=== PATIENT | female | born 1940 | race Caucasian/White ===

== ENCOUNTER 2021-12-17 10:05 | Outpatient (CLI) | payer MEDICARE, BC, SELFPAY ==
[2021-12-17 10:12] VITALS: BP 179/92; PULSE 69; RESP 16; TEMP 35.8; O2SAT 98
[2021-12-17 10:45] VITALS: BP 139/53; PULSE 58; RESP 16; TEMP 36.2; BMI 24.9
[2021-12-17 11:05] VITALS: BP 139/53; PULSE 59; RESP 16; TEMP 36.7; O2SAT 98
== END 2021-12-17 12:05 | disposition home or self-care (01) ==
PROVIDERS: PCP Family Medicine; Visit Provider Nurse Practitioner
DX: U07.1 COVID-19 (principal)
CPT/HCPCS: 96365

== ENCOUNTER 2022-10-11 10:23 | Emergency (ER) | payer MEDICARE, BC, SELFPAY ==
[2022-10-11 10:32] VITALS: BP 158/73; PULSE 64; RESP 16; TEMP 36.7; O2SAT 99; BMI 21.4
--- NOTE | 2022-10-11 11:11 | ED_ITS ---
HPI - Recheck/Abnormal Lab/Rx General: Chief Complaint: Recheck/Abnormal Lab/Rx Stated Complaint: Dr. Sanchez asked pt to come here. He called. Time Seen by Provider: 10/11/22 11:05 History of Present Illness: Ms. Mathis is an 82-year-old female presenting to the emergency department due to abnormal lab results. Laboratory studies were obtained by Dr. Sanchez at [facility]. She endorses a 4 to 6-week history of weight loss, generalized malaise, some abdominal fullness and discomfort. This has persisted. Moderate intensity. She is unsure of exactly the abnormal lab values. No other specific changes in health, exacerbating, or alleviating factors identified. Review of outside labs: Glucose 137 BUN 23 Creatinine 1 EGFR calculated 56.6 Total protein 7.6 Total bilirubin 5.6 Albumin 3.8 Globulin 3.8 AST 111 ALT 114 Alk phos 1700 Calcium 9.3 Sodium 130 Potassium 2.1 Chloride 83 CO2 35 Anion gap 12 Osmolality 274.5 TSH 1.75 Initial visit (ago): hour(s) Initial visit for: other Returns today for: called because of abnormal lab/test Associated symptoms: malaise, nausea, abdominal pain and other Review of Systems General: Reports: 10 or more systems reviewed and unremarkable except in HPI and below PFSH ED PFSH: Medical History (Updated 10/25/22 @ 23:40 by Jese Nguyen MD) Acid reflux Aortoiliac occlusive disease Calculus of kidney Chronic obstructive pulmonary disease, unspecified Cystitis Essential (primary) hypertension Hyperlipidemia, unspecified Hypothyroidism, unspecified Peripheral vascular disease, unspecified Surgical History (Updated 10/11/22 @ 11:36 by Jese Nguyen MD) S/P aortobifemoral bypass surgery Social History (Updated 10/11/22 @ 11:36 by Jese Nguyen MD) Smoking and tobacco status: former smoker Physical Exam Const: COMMON NORMALS: alert GENERAL APPEARANCE: cooperative and well developed HENMT: COMMON NORMALS: normocephalic and atraumatic HEAD & SCALP: normocephalic and atraumatic Eye: COMMON NORMALS: conjunctivae normal CONJUNCTIVA: Yes conjunctivae normal SCLERA: scleral abnormal Laterality of scleral abnormality: positive bilateral scleral icterus (Very mild) Neck/C-Spine: COMMON NORMALS: supple GENERAL: Yes trachea midline Resp: COMMON NORMALS: normal respiratory effort EFFORT & INSPECTION: Yes able to speak in complete sentences Cardio: COMMON NORMALS: regular rate and regular rhythm RATE: regular rate RHYTHM: regular rhythm GI: COMMON NORMALS: Soft to palpation PALPATION: Yes Soft to palpation and No Tenderness to palpation present (GI) Extremity: GENERAL: Yes normal exam except as noted and No edema Neuro: COMMON NORMALS: moves all extremities SENSORIUM/ORIENTATION: Yes alert and No Orientation impaired Psych: COMMON NORMALS: mental status grossly normal and Normal thought process present THOUGHT PROCESS: Normal thought process present Course Vital Signs: Vital signs: Vital Signs Temperature 98.1 F 10/11/22 19:22 Pulse Rate 64 10/11/22 19:22 Respiratory Rate 16 10/11/22 19:22 Blood Pressure 147/60 10/11/22 19:22 Pulse Oximetry 99 10/11/22 19:22 Oxygen Delivery Me thod 10/11/22 18:55 MDM - Recheck/Abnormal Lab/Rx Medical Decision Making 82-year-old lady presenting to the emergency department with generalized symptoms and abnormal labs. Exam as above. EKG notable for sinus bradycardia, no STEMI. Labs notable for no leukocytosis, normal hemoglobin. Metabolic panel with evidence of hyponatremia, hypokalemia, hypochloremia, renal function is preserved. Elevated T bili 4.8 direct bili 3.3, AST 75, ALT 80, alk phos 328, normal lipase. Ultrasound with evidence of choledocholithiasis and biliary ductal dilation. No evidence of cholecystitis. Patient given IV fluids, potassium supplementation The results of ED evaluation were discussed with the patient including plan for transfer due to requirement for level of care not available if discharged to prevent significant worsening/deterioration. Patient agreeable with plan. Dr. Augustine at [facility] accepted the patient as transfer (closest h ospital with medical telemetry and capability to perform ERCP.) Medical Records I reviewed the patient's medical records. Lab Data I reviewed the patient's lab results. 10/11/22 11:30 10/11/22 11:30 Radiology Impressions Abdomen Ultrasound 10/11/22 12:13 IMPRESSION: 1. Choledocholithiasis. There is at least one stone within the common bile duct measuring 1.6 x 0.7 cm. 2. Mildly hydropic gallbladder with stones and sludge. 3. Moderate intrahepatic bile duct dilatation. Laboratory Results WBC 9.1 10^3/uL (4.0-10.0) 10/11/22 11:30 RBC 4.04 10^6/uL (4.1-5.3) L 10/11/22 11:30 Hgb 12.5 g/dL (11.5-15.3) 10/11/22 11:30 Hct 38.1 % (37.0-47.0) 10/11/22 11:30 MCV 94.3 fl (81-99) 10/11/22 11:30 MCH 30.9 pg (28.0-34.0) 10/11/22 11:30 MCHC 32.8 g/dL (30.0-36.0) 10/11/22 11:30 RDW 12.8 % (12.1-15.1) 10/11/22 11:30 Plt Count 286 10^3/cmm (130-400) 10/11/22 11:30 MPV 12.1 fL (7.4-10.4) H 10/11/22 11:30 Neut % (Auto) 82.2 % 10/11/22 11:30 Lymph % (Auto) 8.9 % 10/11/22 11:30 [place] % (Auto) 7.4 % 10/11/22 11:30 Eos % (Auto) 0.6 % 10/11/22 11:30 Baso % (Auto) 0.3 % 10/11/22 11:30 Neut # (Auto) 7.45 10^3/uL (1.8-7.7) 10/11/22 11:30 Lymph # (Auto) 0.8 10^3/uL (0.8-4.8) 10/11/22 11:30 [place] # (Auto) 0.7 10^3/uL (0.2-0.9) 10/11/22 11:30 Eos # (Auto) 0.1 10^3/uL (0.0-0.8) 10/11/22 11:30 Baso # (Auto) 0.0 10^3/uL (0.0-0.1) 10/11/22 11:30 Nucleated RBC % (auto) 0 % 10/11/22 11:30 Nucleated RBCs # 0.0 /100WBC 10/11/22 11:30 PT 12.80 SECONDS (12.1-14.9) 10/11/22 11:30 INR 0.93 (0.8-1.2) 10/11/22 11:30 APTT 30.4 SECONDS (23.9-36.7) 10/11/22 11:30 Sodium 129 mmol/L (136-145) L 10/11/22 11:30 Potassium 2.5 mmol/L (3.5-5.1) L* 10/11/22 11:30 Chloride 83 mmol/L (98-107) L 10/11/22 11:30 Carbon Dioxide 33 mmol/L (22-29) H 10/11/22 11:30 Anion Gap 15.5 (5-19) 10/11/22 11:30 BUN 22 mg/dL (8-23) 10/11/22 11:30 Creatinine 0.9 mg/dL (0.5-0.9) 10/11/22 11:30 GFR Calculation Not Reportable 10/11/22 11:30 Glucose 158 mg/dL (65-115) H 10/11/22 11:30 Calculated Osmolality 275 mOsm/kg (285-295) L 10/11/22 11:30 Lactic Acid 2.0 mmol/L (0.5-2.2) 10/11/22 11:30 Calcium 9.5 mg/dL (8.5-10.5) 10/11/22 11:30 Magnesium 2.1 mg/dL (1.7-2.3) 10/11/22 11:30 Total Bilirubin 4.8 mg/dL (0.15-1.2) H 10/11/22 11:30 Direct Bilirubin 3.30 mg/dL (0.00-0.30) H 10/11/22 11:30 AST 75 U/L (0-32) H 10/11/22 11:30 ALT 80 U/L (0-33) H 10/11/22 11:30 Alkaline Phosphatase 1328 U/L (35-105) H* 10/11/22 11:30 Total Protein 6.8 g/dL (6.6-8.7) 10/11/22 11:30 Albumin 2.9 g/dL (3.5-5.2) L 10/11/22 11:30 Globulin 3.9 g/dL (1.3-4.6) 10/11/22 11:30 Lipase 24 U/L (13-60) 10/11/22 11:30 Urine Color Sharyn (Yellow) 10/11/22 12:10 Urine Appearance Hazy (CLEAR) A 10/11/22 12:10 Urine pH 5 (5-7) 10/11/22 12:10 Ur Specific [place] 1.010 (1.005-1.030) 10/11/22 12:10 Urine Protein 1+ (Negative) H 10/11/22 12:10 Urine Glucose (UA) Norm (Normal) 10/11/22 12:10 Urine Ketones 1+ (Negative) H 10/11/22 12:10 Urine Blood Neg (Negative) 10/11/22 12:10 Urine Nitrate Positive (Negative) H 10/11/22 12:10 Urine Bilirubin 2+ (Negative) H 10/11/22 12:10 Urine Urobilinogen 4+ mg/dL (Negative) H 10/11/22 12:10 Ur Leukocyte Esterase 2+ (Negative) H 10/11/22 12:10 Urine RBC Rare /hpf (0-2) 10/11/22 12:10 Urine WBC 15-25 /hpf (0-5) H 10/11/22 12:10 Ur Squamous Epith Cells Rare /hpf (0-5) 10/11/22 12:10 Amorphous Sediment Not Reportable 10/11/22 12:10 Urine Bacteria 4+ /hpf (NONE) H 10/11/22 12:10 Urine Mucus 1+ /hpf 10/11/22 12:10 Discharge Plan Discharge Patient Disposition: Xfer Short-Term Hosp Clinical Impression: Choledocholithiasis Condition: Stable Prescriptions: No Action metoprolol tartrate 100 mg tablet 100 mg PO BID clopidogrel 75 mg tablet 75 mg PO QPM levothyroxine 75 mcg tablet 75 mcg PO DAILY pantoprazole 40 mg tablet,delayed release (DR/EC) 40 mg PO DAILY hydrochlorothiazide 12.5 mg capsule 12.5 mg PO DAILY rosuvastatin 5 mg tablet 5 mg PO QPM amlodipine-benazepril 10-40 mg capsule 1 cap PO DAILY Aspir-81 81 mg Tablet,Delayed Release (Dr/Ec) 81 mg PO DAILY Referrals: Sim Sanchez MD [Primary Care Provider] - Coding Level of Care Code ED [employer] Repairer for Chg Fwd Exam Comprehensive
--- NOTE | 2022-10-11 11:25 | ECG_ITS ---
[facility] Test Date: 2022-10-11 Pat Name: Maribel Mathis Department: Room: Gender: Female Valet Attendant: : 1940 Requested By: Jese Nguyen Order Number: [id number] Reading MD: Bobby Liu Measurements Intervals [place] Rate: 53 P: 74 W[place]: 168 QRS: 78 QRSD: 104 T: 49 QT: 484 QTc: 456 Interpretive Statements SINUS BRADYCARDIA MODERATE T-WAVE ABNORMALITY, CONSIDER ANTERIOR ISCHEMIA [-0.1+ mV T-WAVE IN V3/V4] No previous ECG available for comparison Electronically Signed On 10-11-2022 18:04:33 CHILD PSYCHOLOGIST by Bobby Liu [email or web address]
[2022-10-11 11:40] VITALS: BP 158/73; PULSE 64; RESP 16; TEMP 36.7; O2SAT 99
[2022-10-11 11:45] LABS: Basophils % 0.3 %; Eosinophils # 0.1 10^3/uL (0.0-0.8); Eosinophils % 0.6 %; Hematocrit 38.1 % (37.0-47.0); Hemoglobin 12.5 g/dL (11.5-15.3); Lymphocytes # 0.8 10^3/uL (0.8-4.8); Lymphocytes % 8.9 %; Mean Corpuscular HGB Conc 32.8 g/dL (30.0-36.0); Mean Corpuscular Hemoglobin 30.9 pg (28.0-34.0); Mean Corpuscular Volume 94.3 fl (81-99); Mean Platelet Volume 12.1 fL (7.4-10.4); Monocytes # 0.7 10^3/uL (0.2-0.9); Monocytes % 7.4 %; Neutrophils # 7.45 10^3/uL (1.8-7.7); Neutrophils % 82.2 %; Nucleated Red Blood Cells % 0 %; Platelet Count 286 10^3/cmm (130-400); Red Blood Count 4.04 10^6/uL (4.1-5.3); Red Cell Distribution Width 12.8 % (12.1-15.1); White Blood Count 9.1 10^3/uL (4.0-10.0)
[2022-10-11 11:53] LABS: INR 0.93 (0.8-1.2)
[2022-10-11 11:54] LABS: Partial Thromboplastin Time 30.4 SECONDS (23.9-36.7)
[2022-10-11 11:59] LABS: Alanine Aminotransferase 80 U/L (0-33); Albumin Level 2.9 g/dL (3.5-5.2); Anion Gap 15.5 (5-19); Aspartate Amino Transferase 75 U/L (0-32); Blood Urea Nitrogen 22 mg/dL (8-23); Calcium 9.5 mg/dL (8.5-10.5); Carbon Dioxide 33 mmol/L (22-29); Chloride 83 mmol/L (98-107); Globulin 3.9 g/dL (1.3-4.6); Glucose 158 mg/dL (65-115); Lipase 24 U/L (13-60); Magnesium 2.1 mg/dL (1.7-2.3); Osmolality Calculated 275 mOsm/kg (285-295); Sodium 129 mmol/L (136-145); Total Bilirubin 4.8 mg/dL (0.15-1.2); Total Protein 6.8 g/dL (6.6-8.7)
[2022-10-11 12:03] LABS: Potassium 2.5 mmol/L (3.5-5.1)
[2022-10-11 12:11] LABS: Slide Review Slide Review Perform
[2022-10-11 12:12] LABS: Alkaline Phosphatase 1328 U/L (35-105)
--- NOTE | 2022-10-11 12:13 | US_ITS ---
WS: [id number] RIGHT UPPER QUADRANT ULTRASOUND HISTORY: RUQ, elevated bilirubin and alk phos and transaminitis COMPARISON: Gallbladder ultrasound 10/26/2020 Liver: 14.8 cm in length. Liver is normal size. Moderate biliary duct dilatation. No mass identified. Portal Vein: Normal hepatopetal flow with monophasic waveform. Gallbladder: Mildly hydropic gallbladder. Layering stones and sludge within the gallbladder. There is tumefactive sludge along the nondependent gallbladder wall. No pericholecystic fluid. CBD: 1.0 cm; dilated common bile duct. There is a stone within the common bile duct measuring at leas t 1.6 x 0.7 cm. Pancreas: Only partially visualized pancreas. The common bile duct at the pancreatic head is dilated. There are visualized stones in the common bile duct. Right kidney: 9.7 cm in length. Normal size and echogenicity. No hydronephrosis or mass. Aorta and IVC: Unremarkable abdominal aorta and IVC. No ascites. US/US abdomen limited [id number] IMPRESSION: 1. Choledocholithiasis. There is at least one stone within the common bile roland t measuring 1.6 x 0.7 cm. 2. Mildly hydropic gallbladder with stones and sludge. 3. Moderate intrahepatic bile duct dilatation.
[2022-10-11] MEDS: potassium chloride ER 20 mEq Tablet 40 MEQ PO (12:24)
[2022-10-11 12:28] LABS: Glucose Urine UA Norm (Normal); Ketones Urine 1+ (Negative); Protein Urine 1+ (Negative); Urine Appearance Hazy (CLEAR); Urine Color Amber (Yellow); pH Urine 5 (5-7)
[2022-10-11 12:29] LABS: Add Urine Microscopic? YES; Bilirubin Urine 2+ (Negative); Blood Urine Neg (Negative); Leukocyte Esterase Urine 2+ (Negative); Nitrate Urine Positive (Negative); Urobilinogen Urine 4+ mg/dL (Negative)
[2022-10-11 12:35] LABS: Add Urine Culture? Yes; Bacteria Urine 4+ /hpf; Mucus Urine 1+ /hpf; RBC Urine RARE /hpf (0-2); Squamous Epithelial Cell Urine RARE /hpf (0-5); WBC Urine 15-25 /hpf (0-5)
[2022-10-11] MEDS: lidocaine 1% 5 ML in potassium chloride premix 100 ML 25 ML IV (12:36)
[2022-10-11] MEDS: sodium chloride 0.9% 1,000 ML 150 ML IV (12:40)
[2022-10-11 13:21] VITALS: BP 128/47
[2022-10-11 15:25] VITALS: BP 147/60
[2022-10-11 18:55] VITALS: BP 147/60; PULSE 64; RESP 16; TEMP 36.7; O2SAT 99
[2022-10-11 19:22] VITALS: BP 147/60; PULSE 64; RESP 16; TEMP 36.7; O2SAT 99
== END 2022-10-11 19:23 | disposition short-term general hospital (02) ==
PROVIDERS: Emergency Provider Emergency Medicine; PCP Family Medicine
DX: K80.50 Calculus of bile duct without cholangitis or cholecystitis without obstruction (principal)
CPT/HCPCS: 76705; 80048; 80076; 81001; 83605; 83690; 83735; 85025; 85610; 85730; 87077; 87086; 87186; 93005; 96365; 96366; 99285; J3480; J7030